=== PATIENT | male | born 1980 | race Caucasian/White ===

== ENCOUNTER 2020-06-30 14:54 | Inpatient (IN) | payer OTHER ==
[~2020-06-30] VITALS: Ht 167.6 cm; Wt 83.4 kg
[2020-06-30 16:15] VITALS: BP 118/78
[2020-06-30] MEDS ORDERED: ACETAMINOPHEN 325 MG TABLET PO PRN (18:00)
[2020-06-30] MEDS: DOCUSATE SODIUM 250 MG CAPSULE PO SCH (22:02)
[2020-06-30] MEDS: SENNA 187 MG TABLET PO SCH (22:02)
[2020-06-30] MEDS: ATORVASTATIN CALCIUM 40 MG TABLET PO SCH (22:02)
[2020-07-01 01:00] VITALS: BP 106/63
[2020-07-01 07:16] LABS: BASOPHILS % (AUTO) 0.7 % (0.0-2.0); EOSINOPHILS % (AUTO) 0.8 % (1.0-6.0); HEMATOCRIT 45.9 % (41-53); HEMOGLOBIN 15.5 g/dL (13.5-17.5); LYMPHOCYTES # (AUTO) 1.3 K/uL (1.0-4.8); LYMPHOCYTES % (AUTO) 18.7 % (22.0-44.0); MEAN CORPUSCULAR HEMOGLOBIN 30.6 pg (26.0-34.0); MEAN CORPUSCULAR HGB CONC 33.7 G/dL (31.0-37.0); MEAN CORPUSCULAR VOLUME 91 fL (80-100); MONOCYTES # (AUTO) 0.7 K/uL (0.1-1.0); MONOCYTES % (AUTO) 9.5 % (2.0-9.0); NEUTROPHILS # (AUTO) 5.1 K/uL (1.8-7.7); NEUTROPHILS % (AUTO) 70.3 % (40.0-70.0); PLATELET COUNT (AUTO) 189 K/uL (150-450); RED BLOOD CELL COUNT(AUTO) 5.05 MIL/uL (4.50-5.90); RED CELL DISTRIBUTION WIDTH 12.9 % (11.5-14.5)
[2020-07-01 07:17] VITALS: BP 121/77
[2020-07-01 07:29] LABS: ALANINE AMINOTRANSFERASE 37 U/L (12-78); ALKALINE PHOSPHATASE 77 U/L (46-116); ANION GAP 6 mmol/L (8-16); ASPARTATE AMINOTRANSFERASE 25 U/L (15-37); BILIRUBIN,TOTAL 4.1 mg/dL (0.1-1.0); CALCIUM, TOTAL 9.3 mg/dL (8.8-10.5); CARBON DIOXIDE 30 mmol/L (22-29); CHLORIDE 103 mmol/L (98-107); CREATININE 0.77 mg/dL (0.60-1.30); GLOMERULAR FILTR. RATE CALC > 60 mL/min (>60); GLUCOSE,RANDOM 104 mg/dL (70-110); POTASSIUM 3.7 mmol/L (3.5-5.1); SODIUM SERUM 139 mmol/L (136-145); UREA NITROGEN, BLOOD 18 mg/dL (7-18)
[2020-07-01] MEDS ORDERED: ASPIRIN 81 MG CHEWABLE TABLET PO SCH (09:00)
[2020-07-01] MEDS: ENOXAPARIN SODIUM 40 MG/0.4 ML PF SYRINGE SQ SCH (09:10)
[2020-07-01] MEDS: DOCUSATE SODIUM 250 MG CAPSULE PO SCH ×2 (09:10→20:14)
[2020-07-01 15:37] VITALS: BP 109/49
[2020-07-01] MEDS: ATORVASTATIN CALCIUM 40 MG TABLET PO SCH (20:14)
[2020-07-01] MEDS: SENNA 187 MG TABLET PO SCH (20:14)
[2020-07-02] VITALS (18 sets, daily range): BP systolic 105–129; BP diastolic 62–75
[2020-07-02] MEDS: DOCUSATE SODIUM 283 MG/5 ML MINI-ENEMA PR PRN (05:30)
[2020-07-02 07:16] LABS: ALANINE AMINOTRANSFERASE 37 U/L (12-78); ALBUMIN 3.9 g/dL (3.4-5.0); ALKALINE PHOSPHATASE 75 U/L (46-116); ANION GAP 6 mmol/L (8-16); ASPARTATE AMINOTRANSFERASE 24 U/L (15-37); BILIRUBIN,TOTAL 4.3 mg/dL (0.1-1.0); CALCIUM, TOTAL 9.1 mg/dL (8.8-10.5); CARBON DIOXIDE 29 mmol/L (22-29); CHLORIDE 103 mmol/L (98-107); CREATININE 0.89 mg/dL (0.60-1.30); GLOMERULAR FILTR. RATE CALC > 60 mL/min (>60); GLUCOSE,RANDOM 96 mg/dL (70-110); POTASSIUM 3.8 mmol/L (3.5-5.1); SODIUM SERUM 138 mmol/L (136-145); TOTAL PROTEIN, SERUM 7.7 g/dL (6.4-8.2); UREA NITROGEN, BLOOD 15 mg/dL (7-18)
[2020-07-02] MEDS: DOCUSATE SODIUM 250 MG CAPSULE PO SCH ×2 (08:04→20:30)
[2020-07-02] MEDS: ENOXAPARIN SODIUM 40 MG/0.4 ML PF SYRINGE SQ SCH (08:04)
[2020-07-02 16:56] LABS: BAND NEUTROPHILS % (MANUAL) 0 % (0-5)
[2020-07-02 17:03] LABS: HEMATOCRIT 45.1 % (41-53); MEAN CORPUSCULAR HEMOGLOBIN 30.2 pg (26.0-34.0); MEAN CORPUSCULAR HGB CONC 33.3 G/dL (31.0-37.0); MEAN CORPUSCULAR VOLUME 91 fL (80-100); PLATELET COUNT (AUTO) 189 K/uL (150-450); RED BLOOD CELL COUNT(AUTO) 4.98 MIL/uL (4.50-5.90)
[2020-07-02 17:17] LABS: BILIRUBIN,DIRECT 0.2 mg/dL (0.00-0.20); BILIRUBIN,TOTAL 4.1 mg/dL (0.1-1.0)
[2020-07-02 17:36] LABS: LYMPHOCYTES % (MANUAL) 27 % (22-44); MONOCYTES % (MANUAL) 11 % (2-9); SEGMENTED NEUTROPHILS % 62 % (40-70)
[2020-07-02] MEDS: ATORVASTATIN CALCIUM 40 MG TABLET PO SCH (20:30)
[2020-07-02] MEDS: MELATONIN 3 MG TABLET PO PRN (20:31)
[2020-07-02] MEDS: SENNA 187 MG TABLET PO SCH (20:33)
[2020-07-03 07:45] VITALS: BP 119/63
[2020-07-03] MEDS: BACLOFEN 10 MG TABLET PO PRN ×2 (09:26→19:56)
[2020-07-03] MEDS: ENOXAPARIN SODIUM 40 MG/0.4 ML PF SYRINGE SQ SCH (09:26)
[2020-07-03] MEDS: DOCUSATE SODIUM 250 MG CAPSULE PO SCH ×2 (09:26→19:55)
[2020-07-03 15:35] VITALS: BP 111/81
[2020-07-03 16:13] VITALS: BP 111/81
[2020-07-03] MEDS: ATORVASTATIN CALCIUM 40 MG TABLET PO SCH (19:55)
[2020-07-03] MEDS: SENNA 187 MG TABLET PO SCH (19:55)
[2020-07-03] MEDS: MELATONIN 3 MG TABLET PO PRN (20:26)
[2020-07-04 05:35] VITALS: BP 107/73
[2020-07-04 07:37] VITALS: BP 113/67
[2020-07-04] MEDS: DOCUSATE SODIUM 250 MG CAPSULE PO SCH ×2 (08:01→21:02)
[2020-07-04] MEDS: ENOXAPARIN SODIUM 40 MG/0.4 ML PF SYRINGE SQ SCH (08:02)
[2020-07-04 15:52] VITALS: BP 119/78
[2020-07-04] MEDS: SENNA 187 MG TABLET PO SCH (21:02)
[2020-07-04] MEDS: ATORVASTATIN CALCIUM 40 MG TABLET PO SCH (21:02)
[2020-07-04 23:15] VITALS: BP 101/63
[2020-07-04 23:17] VITALS: BP 101/3
[2020-07-05 07:20] VITALS: BP 108/69
[2020-07-05 09:00] VITALS: BP 108/69
[2020-07-05] MEDS: DOCUSATE SODIUM 250 MG CAPSULE PO SCH ×2 (09:20→20:05)
[2020-07-05] MEDS: ENOXAPARIN SODIUM 40 MG/0.4 ML PF SYRINGE SQ SCH (09:21)
[2020-07-05 15:47] VITALS: BP 116/69
[2020-07-05] MEDS: BACLOFEN 10 MG TABLET PO SCH ×2 (16:07→20:05)
[2020-07-05] MEDS: SENNA 187 MG TABLET PO SCH (20:05)
[2020-07-05] MEDS: ATORVASTATIN CALCIUM 40 MG TABLET PO SCH (20:05)
[2020-07-06 05:50] VITALS: BP 109/70
[2020-07-06] MEDS ORDERED: DOCU-350 PO (07:53)
[2020-07-06] MEDS ORDERED: SENN8.6T90 PO (07:53)
[2020-07-06] MEDS ORDERED: ATOR40TA28 PO (07:53)
[2020-07-06] MEDS ORDERED: BACL10TA PO (07:53)
[2020-07-06 08:00] VITALS: BP 110/75
[2020-07-06] MEDS: DOCUSATE SODIUM 250 MG CAPSULE PO SCH ×2 (09:06→21:15)
[2020-07-06] MEDS: BACLOFEN 10 MG TABLET PO SCH ×3 (09:07→21:15)
[2020-07-06 16:06] VITALS: BP 106/68
[2020-07-06] MEDS: ATORVASTATIN CALCIUM 40 MG TABLET PO SCH (21:15)
[2020-07-06] MEDS: SENNA 187 MG TABLET PO SCH (21:15)
[2020-07-07 03:33] VITALS: BP 100/64
[2020-07-07] MEDS: DOCUSATE SODIUM 250 MG CAPSULE PO SCH ×2 (08:08→20:32)
[2020-07-07] MEDS: BACLOFEN 10 MG TABLET PO SCH ×3 (08:08→20:32)
[2020-07-07 09:06] VITALS: BP 101/65
[2020-07-07] MEDS ORDERED: LIDOCAINE 1% 10 ML VIAL INJ ONE (09:30)
[2020-07-07 16:00] VITALS: BP 109/54
[2020-07-07 16:51] LABS: GLUCOSE, CSF 69 mg/dL (50-80); TOTAL PROTEIN, CSF 68 mg/dL (15-45)
[2020-07-07 17:26] LABS: APPEARANCE,CSF CLEAR (CLEAR); APPEARANCE2,CSF CLEAR (CLEAR); COLOR,CSF COLORLESS (COLORLESS); COLOR2,CSF COLORLESS (COLORLESS); CSF 2ND TUBE NUMBER 4; CSF TUBE NUMBER 1; LYMPHOCYTES1,CSF 0 %; LYMPHOCYTES2,CSF 0 %; MONOCYTES1,CSF 0 %; MONOCYTES2,CSF 0 %; NEUTROPHILS1,CSF 0 %; NEUTROPHILS2,CSF 0 %; RED BLOOD CELL1,CSF 43.3 CMM (0-0)
[2020-07-07] MEDS: SENNA 187 MG TABLET PO SCH (20:32)
[2020-07-07] MEDS: ATORVASTATIN CALCIUM 40 MG TABLET PO SCH (20:32)
[2020-07-07 23:08] VITALS: BP 100/61
[2020-07-08 07:30] VITALS: BP 106/67
[2020-07-08] MEDS: DOCUSATE SODIUM 250 MG CAPSULE PO SCH ×2 (07:52→20:21)
[2020-07-08] MEDS: BACLOFEN 10 MG TABLET PO SCH ×3 (07:52→20:22)
[2020-07-08 08:14] LABS: BILIRUBIN,DIRECT 0.2 mg/dL (0.00-0.20); BILIRUBIN,TOTAL 1.8 mg/dL (0.1-1.0)
[2020-07-08] MEDS: ENOXAPARIN SODIUM 40 MG/0.4 ML PF SYRINGE SQ SCH (15:17)
[2020-07-08] MEDS: ASPIRIN 81 MG CHEWABLE TABLET PO SCH (15:17)
[2020-07-08 18:31] VITALS: BP 133/81
[2020-07-08] MEDS: SENNA 187 MG TABLET PO SCH (20:21)
[2020-07-08] MEDS: ATORVASTATIN CALCIUM 40 MG TABLET PO SCH (20:21)
[2020-07-09 03:54] VITALS: BP 100/58
[2020-07-09 09:00] VITALS: BP 114/59
[2020-07-09] MEDS: DOCUSATE SODIUM 250 MG CAPSULE PO SCH ×2 (09:28→21:11)
[2020-07-09] MEDS: ENOXAPARIN SODIUM 40 MG/0.4 ML PF SYRINGE SQ SCH (09:29)
[2020-07-09] MEDS: ASPIRIN 81 MG CHEWABLE TABLET PO SCH (09:29)
[2020-07-09] MEDS: BACLOFEN 10 MG TABLET PO SCH ×3 (09:29→21:11)
[2020-07-09 16:19] VITALS: BP 125/74
[2020-07-09] MEDS: ATORVASTATIN CALCIUM 40 MG TABLET PO SCH (21:11)
[2020-07-09] MEDS: SENNA 187 MG TABLET PO SCH (21:11)
[2020-07-10 00:35] VITALS: BP 103/61
[2020-07-10 08:15] VITALS: BP 111/63
[2020-07-10] MEDS: BACLOFEN 10 MG TABLET PO SCH ×3 (08:25→20:04)
[2020-07-10] MEDS: ENOXAPARIN SODIUM 40 MG/0.4 ML PF SYRINGE SQ SCH (08:25)
[2020-07-10] MEDS: ASPIRIN 81 MG CHEWABLE TABLET PO SCH (08:25)
[2020-07-10] MEDS: DOCUSATE SODIUM 250 MG CAPSULE PO SCH ×2 (08:25→20:04)
[2020-07-10 16:26] VITALS: BP 118/68
[2020-07-10] MEDS: ATORVASTATIN CALCIUM 40 MG TABLET PO SCH (20:04)
[2020-07-10] MEDS: SENNA 187 MG TABLET PO SCH (20:04)
[2020-07-11 00:35] VITALS: BP 99/55
[2020-07-11] MEDS: DOCUSATE SODIUM 283 MG/5 ML MINI-ENEMA PR PRN (05:10)
[2020-07-11 08:13] VITALS: BP_SYST 115; BP_SYST 131; BP_DIAS 59; BP_DIAS 65
[2020-07-11] MEDS: ASPIRIN 81 MG CHEWABLE TABLET PO SCH (09:02)
[2020-07-11] MEDS: DOCUSATE SODIUM 250 MG CAPSULE PO SCH ×2 (09:02→21:28)
[2020-07-11] MEDS: ENOXAPARIN SODIUM 40 MG/0.4 ML PF SYRINGE SQ SCH (09:02)
[2020-07-11] MEDS: BACLOFEN 10 MG TABLET PO SCH ×3 (09:02→21:28)
[2020-07-11 15:20] VITALS: BP 103/56
[2020-07-11] MEDS: SENNA 187 MG TABLET PO SCH (21:28)
[2020-07-11] MEDS: ATORVASTATIN CALCIUM 40 MG TABLET PO SCH (21:28)
[2020-07-11 23:44] VITALS: BP 102/59
[2020-07-12 08:00] VITALS: BP 107/56
[2020-07-12] MEDS: BACLOFEN 10 MG TABLET PO SCH ×3 (08:12→20:13)
[2020-07-12] MEDS: ASPIRIN 81 MG CHEWABLE TABLET PO SCH (08:12)
[2020-07-12] MEDS: ENOXAPARIN SODIUM 40 MG/0.4 ML PF SYRINGE SQ SCH (08:12)
[2020-07-12] MEDS: DOCUSATE SODIUM 250 MG CAPSULE PO SCH ×2 (08:12→20:13)
[2020-07-12 15:20] VITALS: BP 107/61
[2020-07-12] MEDS: SENNA 187 MG TABLET PO SCH (20:13)
[2020-07-12] MEDS: ATORVASTATIN CALCIUM 40 MG TABLET PO SCH (20:13)
[2020-07-12 23:43] VITALS: BP 109/60
[2020-07-13 09:00] VITALS: BP 105/65
[2020-07-13] MEDS: DOCUSATE SODIUM 250 MG CAPSULE PO SCH ×2 (09:11→20:28)
[2020-07-13] MEDS: BACLOFEN 10 MG TABLET PO SCH ×3 (09:12→20:28)
[2020-07-13] MEDS: ENOXAPARIN SODIUM 40 MG/0.4 ML PF SYRINGE SQ SCH (09:12)
[2020-07-13] MEDS: ASPIRIN 81 MG CHEWABLE TABLET PO SCH (09:12)
[2020-07-13 16:11] VITALS: BP 105/66
[2020-07-13] MEDS: ATORVASTATIN CALCIUM 40 MG TABLET PO SCH (20:28)
[2020-07-13] MEDS: SENNA 187 MG TABLET PO SCH (20:28)
[2020-07-14 06:00] VITALS: BP 98/63
[2020-07-14 07:20] VITALS: BP 107/64
[2020-07-14] MEDS: DOCUSATE SODIUM 250 MG CAPSULE PO SCH ×2 (09:29→20:05)
[2020-07-14] MEDS: ASPIRIN 81 MG CHEWABLE TABLET PO SCH (09:29)
[2020-07-14] MEDS: BACLOFEN 10 MG TABLET PO SCH ×3 (09:29→20:05)
[2020-07-14] MEDS: ENOXAPARIN SODIUM 40 MG/0.4 ML PF SYRINGE SQ SCH (09:29)
[2020-07-14 16:45] VITALS: BP 111/68
[2020-07-14] MEDS: ATORVASTATIN CALCIUM 40 MG TABLET PO SCH (20:05)
[2020-07-14] MEDS: SENNA 187 MG TABLET PO SCH (20:06)
[2020-07-14 23:18] VITALS: BP 109/59
[2020-07-15 07:53] VITALS: BP 111/66
[2020-07-15] MEDS: BACLOFEN 10 MG TABLET PO SCH ×3 (08:25→20:18)
[2020-07-15] MEDS: ENOXAPARIN SODIUM 40 MG/0.4 ML PF SYRINGE SQ SCH (08:25)
[2020-07-15] MEDS: ASPIRIN 81 MG CHEWABLE TABLET PO SCH (08:25)
[2020-07-15] MEDS: DOCUSATE SODIUM 250 MG CAPSULE PO SCH ×2 (08:25→20:18)
[2020-07-15 14:45] VITALS: BP 116/67
[2020-07-15] MEDS: SENNA 187 MG TABLET PO SCH (20:18)
[2020-07-15] MEDS: ATORVASTATIN CALCIUM 40 MG TABLET PO SCH (20:18)
[2020-07-16 00:39] VITALS: BP 103/59
[2020-07-16] MEDS ORDERED: ASPI-728 PO (01:39)
[2020-07-16 08:01] VITALS: BP 112/60
[2020-07-16] MEDS: BACLOFEN 10 MG TABLET PO SCH ×2 (08:38→15:42)
[2020-07-16] MEDS: ASPIRIN 81 MG CHEWABLE TABLET PO SCH (08:38)
[2020-07-16] MEDS: ENOXAPARIN SODIUM 40 MG/0.4 ML PF SYRINGE SQ SCH (08:38)
[2020-07-16] MEDS: DOCUSATE SODIUM 250 MG CAPSULE PO SCH (08:38)
[2020-07-16 15:45] VITALS: BP 112/64
== END 2020-07-16 16:00 | disposition home health service (06) | DRG 58 ==
LOC: 2WR 16:05
PROVIDERS: ADMIT Physical Medicine & Rehabilitation; ATTEND Physical Medicine & Rehabilitation
DX: I69.354 Hemiplegia and hemiparesis following cerebral infarction affecting left non-dominant side (principal); I63.9 Cerebral infarction, unspecified; E80.6 Other disorders of bilirubin metabolism; G31.84 Mild cognitive impairment of uncertain or unknown etiology; G12.29 Other motor neuron disease; R26.9 Unspecified abnormalities of gait and mobility
CPT/HCPCS: 76700; 80074; 82247; 82248; 82784; 82945; 83010; 83615; 83873; 83916; 84157; 85007; 85045; 86880; 87070; 87081; 87205; 88108; 89051; 92507; 92523; 97110; 97112; 97116; 97166; 97530; 97535; 99366; J1650; J3490